=== PATIENT | female | born 1970 | race Caucasian/White ===

== ENCOUNTER 2017-12-09 14:54 | Outpatient (CLI) | payer OTHER ==
[~2017-12-09 14:54] MED LIST: AMOX1TAB5 PO; Levsin/Sl 0.125 MG TAB.SUBL SL; PERCOCET 5/3251 TAB PO; POLY119PG PO; PRE PROTEIN 2030 ML PO; SM ESTRO VITAL PO; SPIRULINA500 MG PO; ST JOHN S WORT; TRAM1TAB98 PO; VIT C-BIOFLAVO1 EACH PO; VITAMIN C500 M1 PO
== END 2017-12-09 15:42 | disposition home or self-care (01) ==
LOC: SONOGRAMA 14:54
DX: E03.9 Hypothyroidism, unspecified (principal)

== ENCOUNTER → 2018-12-25 | Day surgery (SDC) | payer OTHER | END | disposition home or self-care (01) | LOC: AMB-ENDOS 06:15 | DX: K64.4 Residual hemorrhoidal skin tags (principal) ==

== ENCOUNTER 2020-05-20 06:00 | Day surgery (SDC) | payer OTHER | END 2020-05-20 10:05 | disposition home or self-care (01) | LOC: AMB-ENDOS 06:00 | PROVIDERS: ATTEND Surgery | DX: K63.5 Polyp of colon (principal) ==

== ENCOUNTER 2021-07-24 09:45 | Day surgery (SDC) | payer OTHER | END 2021-07-24 13:55 | disposition home or self-care (01) | LOC: AMB-ENDOS 09:45 | PROVIDERS: ATTEND Surgery | DX: D13.1 Benign neoplasm of stomach (principal); A63.0 Anogenital (venereal) warts; Z20.822 Contact with and (suspected) exposure to COVID-19 ==

== ENCOUNTER 2021-12-12 14:34 | Outpatient (CLI) | payer OTHER | END 2021-12-12 14:44 | disposition home or self-care (01) | LOC: SONOGRAMA 14:34 | PROVIDERS: ATTEND Specialist | DX: R10.2 Pelvic and perineal pain (principal) ==

== ENCOUNTER 2022-04-02 15:42 | Outpatient (CLI) | payer OTHER | END 2022-04-02 15:43 | disposition home or self-care (01) | LOC: RAD 15:42 | PROVIDERS: ATTEND Orthopaedic Surgery Hand Surgery | DX: M17.0 Bilateral primary osteoarthritis of knee (principal) ==

== ENCOUNTER 2022-08-15 14:33 | Outpatient (CLI) | payer OTHER | END 2022-08-15 15:00 | disposition home or self-care (01) | LOC: MAMO-SONO 14:33 | PROVIDERS: ATTEND Specialist | DX: N63.11 Unspecified lump in the right breast, upper outer quadrant (principal); N63.21 Unspecified lump in the left breast, upper outer quadrant ==

== ENCOUNTER 2022-09-11 06:00 | Day surgery (SDC) | payer OTHER | END 2022-09-11 14:30 | disposition home or self-care (01) | LOC: CIR.AMB 06:00 | PROVIDERS: ATTEND Orthopaedic Surgery Hand Surgery | DX: G56.01 Carpal tunnel syndrome, right upper limb (principal); Z86.16 Personal history of COVID-19; F12.90 Cannabis use, unspecified, uncomplicated ==

== ENCOUNTER 2023-02-12 12:18 | Outpatient (CLI) | payer OTHER | END 2023-02-12 12:20 | disposition home or self-care (01) | LOC: RAD 12:18 | PROVIDERS: ATTEND Orthopaedic Surgery Hand Surgery | DX: M17.9 Osteoarthritis of knee, unspecified (principal) ==

== ENCOUNTER 2023-10-10 14:28 | Outpatient (CLI) | payer OTHER | END 2023-10-10 14:30 | disposition home or self-care (01) | LOC: MAMO-SONO 14:28 | PROVIDERS: ATTEND Specialist | DX: R10.2 Pelvic and perineal pain (principal); Z12.31 Encounter for screening mammogram for malignant neoplasm of breast; N60.01 Solitary cyst of right breast; N60.02 Solitary cyst of left breast ==

== ENCOUNTER 2023-12-11 12:42 | Outpatient (CLI) | payer OTHER | END 2023-12-11 12:50 | disposition home or self-care (01) | LOC: RAD 12:42 | PROVIDERS: ATTEND Orthopaedic Surgery Hand Surgery | DX: M54.50 Low back pain, unspecified (principal) ==

== ENCOUNTER 2024-06-19 15:22 | Outpatient (CLI) | payer OTHER | END 2024-06-19 15:29 | disposition home or self-care (01) | LOC: RAD 15:22 | PROVIDERS: ATTEND Orthopaedic Surgery Hand Surgery | DX: M20.12 Hallux valgus (acquired), left foot (principal) ==

== ENCOUNTER 2025-01-21 14:17 | Outpatient (CLI) | payer OTHER | END 2025-01-21 14:26 | disposition home or self-care (01) | LOC: SONOGRAMA 14:17 | PROVIDERS: ATTEND Specialist | DX: R10.2 Pelvic and perineal pain (principal); Z85.038 Personal history of other malignant neoplasm of large intestine ==

== ENCOUNTER 2025-01-22 11:33 | Outpatient (CLI) | payer OTHER | END 2025-01-22 11:34 | disposition home or self-care (01) | LOC: NUCLEAR 11:33 | DX: M81.0 Age-related osteoporosis without current pathological fracture (principal) ==